=== PATIENT | female | born 1940 | race Asian ===

== ENCOUNTER 2018-11-29 19:10 | Emergency (ER) | payer OTHER ==
[2018-11-29 19:28] VITALS: TEMP 97.7; BMI 21.6
--- NOTE | 2018-11-29 19:44 | PDOC ---
History of Present Illness - General History Source: Family (daughter as petrophysical engineer) - History of Present Illness Initial Comments: This patient is an 78 year old female with a PMHx of GERD, HLD, kidney stones ( 15 years ago) who presents with complaint of persistent nausea w/o vomit since last night. Patients daughter states that her mom had Mac[place] food for dinner last night, felt fine afterwards. States that she woke up nauseous this morning. Others that ate the same setswana food did not have any nausea symptoms. Daughter states that she took her mother to see her PCP and was given a shot (unsure what it was). She was also given a script for a suppository. Patient states that throughout the day her nausea persisted, hasnt gotten better or worse. felt fine last night, woke up this morning with nausea. Saw PCP, given shot of something, unsure. Given prescription of 1 stool softener, during da, nausea persistent hasn't gotten worse or better. Patient also endorses some chills and mild abdominal discomfort. Denies any fever, sob, cough, chest pain, diarrhea, blood in stool or urine. Allergies: monosodium glutamate (drowsiness and headache) ROS General: No fevers. + some chills, no weakness, no weight loss HEENT: No change in vision. No sore throat, No ear pain Cardiovascular: No chest pain or shortness of breath Respiratory:No cough, or wheezing. Gastrointestinal: +nausea, no vomiting, diarrhea or constipation, No rectal bleeding Genitourinary: No dysuria, hematuria, or frequency Musculoskeletal: No joint or muscle pain or swelling Neurologic: No headache, vertigo, dizziness or loss of consciousness Psychiatric: No depression Skin: No rashes or easy bruising Endocrine: No increased thirst or abnormal weight change Allergic: No skin or latex allergy All other systems reviewed and normal PE General: Well-nourished well-developed individual, no acute distress HEENT: Throat: Normal, tonsils normal, no erythema or exudate Neck: Supple, no meningeal signs, no lymphadenopathy Eyes:Pupils equal reactive and round, extraocular motion intact Chest: Nontender to palpation Cardiac: S1-S2 normal, regular rate and rhythm, no murmurs rubs or gallops Respiratory: Lungs clear to auscultation bilateral Abdomen: Soft, nondistended, normal bowel sounds, tender to palpation RUQ. No guarding, no rebound. Extremities: Warm, dry, no cyanosis, clubbing, or edema Skin: No rashes Neuro: Alert and oriented x3, nonfocal exam, grossly intact, normal gait Psych: Normal mood and affect <Ludivina Katz - Last Filed: 11/29/18 21:42> - General History Source: Patient Exam Limitations: No Limitations - History of Present Illness Initial Comments: 11/29/18 20:14 A portion of this note was documented by scribe services under my direction. I have reviewed the details of the note, within reason, and agree with the documentation with the following case summary and management plan written by me. Patient treated in the ED. Nursing notes are reviewed and incorporated into the medical decision-making. Vital signs reviewed. Assessment plan: This is an 78-year-old female who has had approximately 24 hours of nausea no other symptoms. Patient denies any emergency department Any nausea, vomiting, diarrhea, abdominal pain. Patient denies any fevers or chills. Patient denies any chest pain or shortness of breath. Patient has history significant for kidney stones in the past Patient has multiple cardiac risk factors Workup ordered including CBC, comp, EKG, , chest x-ray, lipase, cardiac enzymes. 21:10 patient's EKG shows normal sinus rhythm at a rate of 71, there is some inverted T's in 1 and aVL with approximately one half millimeter elevation in II. III. aVF. However there is also Q waves in II. III and aVF. Chest x-ray shows no acute pathology 21:45 There are no beds over at [facility] in the ICU so patient will be transferred to [facility] to the department of cardiology for possible cardiac catheterization and management of her acute OH. Discussed with Dr. Bernard who is except the [facility] <Vincent Dunham I - Last Filed: 11/29/18 21:58> - General Chief Complaint: Nausea Stated Complaint: NAUSEA Time Seen by Provider: 11/29/18 19:33 Past History <Ludivina Katz - Last Filed: 11/29/18 21:42> - Past Medical History Anemia: No Asthma: No Cancer: No Cardiac Disorders: No CVA: Yes (TIA) COPD: No CHF: No Dementia: No Diabetes: No GI Disorders: Yes (PUD H/O COLONIC POLYP, GERD) Disorders: No HTN: No Hypercholesterolemia: Yes Liver Disease: No Seizures: No Thyroid Disease: No - Surgical History Appendectomy: No Cholecystectomy: No Neurologic Surgery: No Orthopedic Surgery: No - Suicide/Smoking/Psychosocial Hx Smoking History: Never smoked Have you smoked in the past 12 months: No Hx Alcohol Use: No Drug/Substance Use Hx: No Substance Use Type: None Hx Substance Use Treatment: No <Vincent Dunham I - Last Filed: 11/29/18 21:58> - Past Medical History Allergies/Adverse Reactions: Allergies Allergy/AdvReac Type Severity Reaction Status Date / Time lactose Allergy Intermediate BLOATING Verified 12/28/14 10:21 ampicillin AdvReac Mild DROWSY Verified 12/17/14 07:05 monosodium glutamate AdvReac Mild DROWSY Verified 12/17/14 07:05 Home Medications: Ambulatory Orders Atorvastatin Ca [Lipitor -] 20 mg PO DAILY 12/03/14 Calcium [Hi-Lázaro] 500 mg PO DAILY 12/03/14 Glucosamine Sulfate Dipot Chlr [Glucosamine] 1,000 mg PO DAILY 12/03/14 Multivitamins [Multivit ([facility] Formul[facility])] 1 tab PO DAILY 12/03/14 Pantoprazole Sodium [Protonix -] 20 mg PO DAILY 11/29/18 Prochlorperazine [Compro] 25 mg RC PRN PRN 11/29/18 Review of Systems - Review of Systems Comments:: 11/29/18 19:56 see HPI <Ludivina Katz - Last Filed: 11/29/18 21:42> *Physical Exam - Vital Signs Last Vital Signs Temp Pulse Resp BP Pulse Ox 97.7 F 57 L 18 110/65 98 11/29/18 19:20 11/29/18 19:20 11/29/18 19:20 11/29/18 19:20 11/29/18 19:20 - Physical Exam Comments: 11/29/18 19:57 see HPI <Ludivina Katz - Last Filed: 11/29/18 21:42> - Vital Signs Last Vital Signs Temp Pulse Resp BP Pulse Ox 97.7 F 57 L 18 110/65 98 11/29/18 19:20 11/29/18 19:20 11/29/18 19:20 11/29/18 19:20 11/29/18 19:20 <Vincent Dunham I - Last Filed: 11/29/18 21:58> Moderate Sedation - Procedure Monitoring Vital Signs: Procedure Monitoring Vital Signs Temperature 97.7 F 11/29/18 19:20 Pulse Rate 57 L 11/29/18 19:20 Respiratory Rate 18 11/29/18 19:20 Blood Pressure 110/65 11/29/18 19:20 O2 Sat by Pulse Oximetry (%) 98 11/29/18 19:20 <Ludivina Katz - Last Filed: 11/29/18 21:42> - Procedure Monitoring Vital Signs: Procedure Monitoring Vital Signs Temperature 97.7 F 11/29/18 19:20 Pulse Rate 57 L 11/29/18 19:20 Respiratory Rate 18 11/29/18 19:20 Blood Pressure 110/65 11/29/18 19:20 O2 Sat by Pulse Oximetry (%) 98 11/29/18 19:20 <Vincent Dunham I - Last Filed: 11/29/18 21:58> ED Treatment Course - LABORATORY CBC & Chemistry Diagram: 11/29/18 20:05 11/29/18 20:05 <Ludivina Katz - Last Filed: 11/29/18 21:42> - LABORATORY CBC & Chemistry Diagram: 11/29/18 20:05 11/29/18 20:05 <Vincent Dunham I - Last Filed: 11/29/18 21:58> Medical Decision Making - Medical Decision Making Called back Dr. Cooper's (cards) service to alert him that due to the fact that there are no ICU beds at [facility], we are transferring patient to [facility]. 11/29/18 21:42 <Ludivina Katz - Last Filed: 11/29/18 21:42> *DC/Admit/Observation/Transfer - Attestations Scribe Attestion: 11/29/18 19:57 Documentation prepared by Ludivina Katz, acting as medical translator for Vincent Dunham MD. <Ludivina Katz - Last Filed: 11/29/18 21:42> <Vincent Dunham I - Last Filed: 11/29/18 21:58> Diagnosis at time of Disposition: Acute OH Qualifiers: Myocardial infarction type: ST elevation myocardial infarction Involved coronary artery: unspecified coronary artery Qualified Code(s): I21.3 - ST elevation (STEMI) myocardial infarction of unspecified site - Discharge Dispostion Disposition: TRANSFER ACUTE CARE/OTHER HOSP Condition at time of disposition: Stable - Referrals Referrals: Juan Baker MD [Primary Care Provider] - - Patient Instructions - Post Discharge Activity
[2018-11-29] MEDS ORDERED: ONDANSETRON 4 MG/2 ML VIAL IVPB ONE (19:48)
[2018-11-29] MEDS ORDERED: SODIUM CHLORIDE 1,000 ML IV SCH (20:00)
[2018-11-29 20:02] LABS: PH,URINE 8.5 (4.5-8); URINE APPEARANCE Clear; URINE BILIRUBIN Negative (NEGATIVE); URINE COLOR Yellow; URINE GLUCOSE (UA) Negative (NEGATIVE); URINE KETONE 2+ (NEGATIVE); URINE LEUK ESTERASE Negative (NEGATIVE); URINE NITRITE Negative (NEGATIVE); URINE PROTEIN 1+ (NEGATIVE); URINE UROBILINOGEN 0.2 (0.2-1.0)
[2018-11-29] MEDS ORDERED: ONDANSETRON 4 MG/2 ML VIAL ONE (20:08)
[2018-11-29 20:30] LABS: EPI CELLS FEW /HPF; URINE RBC 0-2 /hpf (0-3); URINE WBC 0-2 (0-5)
[2018-11-29 20:31] LABS: URINE MUCUS 2+
[2018-11-29 20:32] LABS: BASO % 0.1 % (0-2.0); EOS % 0.2 % (0-4.5); HEMATOCRIT 39.8 % (32.4-45.2); HEMOGLOBIN 13.1 GM/dl (10.7-15.3); LYMPH % 8.4 % (8-40); MCH 30.6 pg (25.7-33.7); MCHC 32.9 g/dl (32.0-36.0); MEAN CELL VOLUME 92.9 fl (80-96); MEAN PLT VOLUME 8.8 fl (7.5-11.1); MONO % 5.2 % (3.8-10.2); NEUT % 86.1 % (42.8-82.8); PLATELET COUNT 228 K/MM3 (134-434); RBC 4.29 M/mm3 (3.60-5.2); WHITE BLOOD COUNT 6.7 K/mm3 (4.0-10.8)
[2018-11-29 20:37] LABS: ALK PHOS 60 U/L (45-117); ANION GAP 9 MMOL/L (8-16); BILIRUBIN,TOTAL 0.6 mg/dl (0.2-1); BLOOD UREA NITROGEN 18 mg/dl (7-18); CALCIUM 8.8 mg/dl (8.5-10); CHLORIDE 103 mmol/L (98-107); CO2 27 mmol/L (21-32); CREATININE 0.6 mg/dl (0.55-1.3); GLUCOSE,RANDOM 99 mg/dl (74-106); POTASSIUM 3.8 mmol/L (3.5-5.1); SGOT/AST 73 U/L (15-37); SGPT/ALT 24 U/L (13-61); SODIUM 139 mmol/L (136-145); TOT PROT 7.1 g/dl (6.4-8.2)
[2018-11-29 21:05] LABS: LIPASE 134 U/L (73-393)
[2018-11-29] MEDS ORDERED: ASPIRIN 81 MG CHEWABLE TABLETS ONE (21:11)
[2018-11-29] MEDS ORDERED: ASPIRIN 81 MG CHEWABLE TABLETS PO ONE (21:30)
[2018-11-29] MEDS ORDERED: CLOPIDOGREL BISULFATE 300 MG TABLET PO ONE (21:44)
[2018-11-29] MEDS ORDERED: HEPARIN INFUSION - 25,000 UNITS/500 ML INFUS.BAG IVPB ONE (21:47)
[2018-11-29] MEDS ORDERED: CLOPIDOGREL BISULFATE 300 MG TABLET ONE (21:47)
[2018-11-29] MEDS ORDERED: HEPARIN NA (PORCINE) 5,000 UNITS/ML 1ML VIAL ONE (21:47)
[2018-11-29] MEDS ORDERED: HEPARIN NA (PORCINE) 5,000 UNITS/ML 1ML VIAL IVPUSH PRN ×2 (21:48)
[2018-11-29] MEDS ORDERED: HEPARIN SOD,PORK IN 0.45% NACL 25,000 UNIT/500 ML INFUS.BAG IVPB SCH (22:00)
[2018-11-29 22:03] LABS: ACTIVATED PTT 25.1 SECONDS (25.2-36.5)
[2018-11-29 22:08] LABS: INR 1.06 (0.82-1.09); PROTHROMBIN TIME (PATIENT) 11.9 SEC (10.2-13.0)
[2018-11-29 22:38] VITALS: BP 99/59; PULSE 67
--- NOTE | 2018-11-30 13:22 | EKG ---
Test Reason : Blood Pressure : / mmHG Vent. Rate : 071 BPM Atrial Rate : 071 BPM P-R Int : 158 ms QRS Dur : 078 ms QT Int : 428 ms P-R-T Axes : 057 030 082 degrees QTc Int : 465 ms NORMAL SINUS RHYTHM POSSIBLE LEFT ATRIAL ENLARGEMENT POSSIBLE INFERIOR INFARCT , AGE UNDETERMINED NONSPECIFIC T WAVE ABNORMALITY ABNORMAL ECG NO PREVIOUS ECGS AVAILABLE Confirmed by ABIGAIL BURROUGHS MD ([id number]) on 11/30/2018 1:22:10 PM Referred By: [facility] Confirmed By:ABIGAIL BURROUGHS MD
== END 2018-11-29 22:57 | disposition short-term general hospital (02) ==
LOC: FER 19:10
PROC: 3E033GC Introduction of Other Therapeutic Substance into Peripheral Vein, Percutaneous Approach (ICD-10-PCS; principal; 2018-11-29)
PROC: 3E0337Z Introduction of Electrolytic and Water Balance Substance into Peripheral Vein, Percutaneous Approach (ICD-10-PCS; 2018-11-29)
DX: I21.3 ST elevation (STEMI) myocardial infarction of unspecified site (principal); E78.5 Hyperlipidemia, unspecified; K21.9 Gastro-esophageal reflux disease without esophagitis; Z86.73 Personal history of transient ischemic attack (TIA), and cerebral infarction without residual deficits
CPT/HCPCS: 36415; 71045-TC-FY; 76705-TC; 76775-TC; 80053; 81003; 81015; 82272; 82550; 82553; 83690; 84484; 85025; 85610; 85730; 87086; 93005; 96374; 96375; 99284-25; J1644; J7030

== ENCOUNTER 2021-04-05 04:39 | Day surgery (SDC) | payer OTHER ==
[2021-04-01 14:46] VITALS: BMI 19.5
[2021-04-05] MEDS ORDERED: LIDOCAINE VISCOUS 2% ORAL/TOP 20 ML UNIT-DOSE CUP ONE (09:35)
[2021-04-05] MEDS ORDERED: LIDOCAINE VISCOUS 2% ORAL/TOP 20 ML UNIT-DOSE CUP MM ONE (10:12)
[2021-04-05 10:35] VITALS: TEMP 97.8
[2021-04-05 11:21] VITALS: BP 127/69; PULSE 57
== END 2021-04-05 11:50 | disposition home or self-care (01) ==
LOC: JASU-ENDO 04:39
PROVIDERS: ATTEND Internal Medicine Cardiovascular Disease
PROC: B246ZZ4 Ultrasonography of Right and Left Heart, Transesophageal (ICD-10-PCS; principal; 2021-04-05 10:00)
DX: I51.0 Cardiac septal defect, acquired (principal); G45.9 Transient cerebral ischemic attack, unspecified
CPT/HCPCS: 93312; 93325

== ENCOUNTER 2024-08-30 18:47 | Emergency (ER) | payer OTHER ==
[2024-08-30 19:04] VITALS: BP 132/76; PULSE 78; RESP 18; TEMP 98.8; BMI 31.8
[2024-08-30] MEDS ORDERED: FAMOTIDINE 20 MG/50 ML IVPB 20 MG/50 ML MG IVPB ONE (19:54)
[2024-08-30] MEDS ORDERED: ONDANSETRON 4 MG/2 ML VIAL ONE (19:54)
[2024-08-30] MEDS: SODIUM CHLORIDE 1,000 ML IV SCH (20:04)
[2024-08-30] MEDS: FAMOTIDINE 20 MG/50 ML IVPB 20 MG/50 ML MG IVPB ONE (20:04)
[2024-08-30] MEDS: ONDANSETRON 4 MG/2 ML VIAL IVPUSH ONE (20:04)
[2024-08-30 20:25] LABS: HEMATOCRIT 36.8 % (32.4-45.2); HEMOGLOBIN 11.8 G/dL (10.7-15.3); MCH 30.6 pg (25.7-33.7); MCHC 32.1 g/dl (32.0-36.0); MEAN CELL VOLUME 95.2 fl (80-96); MEAN PLT VOLUME 9.1 fl (7.5-11.1); PLATELET COUNT 171.1 10^3/uL (134-434); RBC 3.87 10^6/uL (3.60-5.2); RDW 14.2 % (11.6-15.6); WHITE BLOOD COUNT 9.7 10^3/uL (4.0-10.8)
[2024-08-30 20:27] LABS: PLATELET ESTIMATE ADEQUATE
[2024-08-30 20:30] LABS: ALBUMIN 4.2 g/dl (3.4-5.0); BILIRUBIN,TOTAL 1.2 mg/dl (0.2-1); CALCIUM 8.9 mg/dl (8.5-10.1); CREATININE 0.6 mg/dl (0.6-1.3); POTASSIUM 3.5 mmol/L (3.5-5.1); TOT PROT 6.7 g/dl (6.4-8.2)
[2024-08-30] MEDS ORDERED: METOCLOPRAMIDE HCL INJECTION 10 MG/2 ML VIAL ONE (21:43)
[2024-08-30] MEDS: METOCLOPRAMIDE HCL INJECTION 10 MG/2 ML VIAL IVPB ONE (21:45)
== END 2024-08-30 22:53 | disposition home or self-care (01) ==
LOC: FER 18:47
PROC: 3E033GC Introduction of Other Therapeutic Substance into Peripheral Vein, Percutaneous Approach (ICD-10-PCS; principal; 2024-08-30)
PROC: 3E033GC Introduction of Other Therapeutic Substance into Peripheral Vein, Percutaneous Approach (ICD-10-PCS; 2024-08-30)
PROC: 3E033GC Introduction of Other Therapeutic Substance into Peripheral Vein, Percutaneous Approach (ICD-10-PCS; 2024-08-30)
DX: R11.2 Nausea with vomiting, unspecified (principal); R10.13 Epigastric pain
CPT/HCPCS: 36415; 80053; 84484; 85027; 93005; 99284-25